=== PATIENT | female | born 1990 | race Caucasian/White ===

== ENCOUNTER 2022-03-31 17:50 | Outpatient (REF) | payer MEDICARE, SELFPAY ==
[2022-03-31 20:18] LABS: *AMPHETAMINES SCREEN URINE Negative (Negative); *BARBITURATES SCREEN URINE Negative (Negative); *BENZODIAZEPINES SCREEN URINE Negative (Negative); Cannabinoids THC Negative (Negative); Cocaine Screen,Urine Negative (Negative); METHADONE URINE SCREEN Negative (Negative); OPIATES URINE SCREEN Negative (Negative)
[2022-03-31 20:29] LABS: Tricyclic Antidepressants Negative (Negative)
[2022-04-10 16:09] LABS: Buprenorphine Negative ng/mL (Cutoff: 5.0); Norbuprenorphine Negative ng/mL (Cutoff: 2.5)
== END 2022-03-31 17:51 | disposition home or self-care (01) ==
LOC: LBN 17:50
PROVIDERS: Visit Provider Advanced Practice Midwife
DX: Z34.93 Encounter for supervision of normal pregnancy, unspecified, third trimester (principal)
CPT/HCPCS: 80307; 87077; 87086; 87186; 87480; 87510; 87660

== ENCOUNTER 2022-04-02 02:47 | Outpatient (CLI) | payer MEDICARE, SELFPAY ==
--- NOTE | 2022-04-02 07:00 | DI.US_ITS ---
Exam(s) US OB KATERIN WEIGHT EXAM: US OB KATERIN WEIGHT CLINICAL HISTORY: drug exposure, growth,P04.9. TECHNIQUE: Transabdominal obstetrical ultrasound performed. COMPARISON: No exams were available for comparison FINDINGS:: Number of fetuses: One. position: Vertex. Placental location: Anterior, grade 2 no evidence of previa. BIOMETRIC DATA: BPD: 86mm = 34+5 weeks HC: 325mm = 36+ 6 weeks AC: 352mm = 39+ 1 weeks FL: 69 mm = 35+4 weeks EFW: 3238 Gms = 92% Composite Age: 36+ 4 weeks EDC: 26 April 2022 Heart Rate: 157BPM Amniotic fluid index: 11.8 cm. Amount of fluid is visually within normal limits. IMPRESSION: size and weight are within the expected range. DATA REPOSITORY:
== END 2022-04-02 03:07 ==
PROVIDERS: Visit Provider Advanced Practice Midwife
DX: O99.321 Drug use complicating pregnancy, first trimester (principal)
CPT/HCPCS: 76816

== ENCOUNTER 2022-04-07 03:19 | Outpatient (CLI) | payer MEDICARE, MEDICAID, SELFPAY ==
[2022-04-07 13:18] LABS: HCT 30.8 % (36.0-46.0); HGB 9.8 g/dL (11.2-15.7); MCH 26.6 pg (27.0-33.0); MCHC 31.8 % (32.0-36.0); MCV 84 fL (80-95); MPV 9.9 fL (8.0-11.0); Platelet Count 380 10^3/uL (130-400); RBC 3.68 10^6/uL (3.93-5.22); RDW-SD 42.1 fL; WBC 11.91 10^3/uL (4.4-10.8)
[2022-04-07 14:08] LABS: Hemoglobin A1C 5.6 % (<5.7)
== END 2022-04-07 03:20 | disposition home or self-care (01) ==
LOC: LBO 03:19
PROVIDERS: Visit Provider Advanced Practice Midwife
DX: Z36.85 Encounter for antenatal screening for Streptococcus B; O99.013 Anemia complicating pregnancy, third trimester; Z3A.36 36 weeks gestation of pregnancy
CPT/HCPCS: 36415; 85027; 86850; 86900; 86901; 83036; 87081

== ENCOUNTER 2023-01-31 08:46 | Emergency (ER) | payer MEDICARE, MEDICAID, SELFPAY ==
[2023-01-31 08:47] VITALS: BP 127/85; PULSE 90; RESP 20; TEMP 36.9; O2SAT 96
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
[2023-01-31 10:53] LABS: Bilirubin Small (Negative); Blood Trace-intact (Negative); Clarity Sl Cloudy (Clear); Glucose Negative (Negative); Ketones 40 mg/dL (Negative); Leukocyte Esterase Trace (Negative); Nitrite Positive (Negative); Specific Gravity >= 1.030 (1.005-1.025)
[2023-01-31 11:01] LABS: Bacteria Many HPF (Negative); C & S Indicated? No/Sq. Contamination; Casts Negative LPF (Negative); Crystals Negative HPF (Negative); Epithelial Cells Many HPF (Negative); Mucus Heavy (Negative)
[2023-01-31 11:02] LABS: *AMPHETAMINES SCREEN URINE Negative (Negative); *BARBITURATES SCREEN URINE Negative (Negative); *BENZODIAZEPINES SCREEN URINE Negative (Negative); Cannabinoids THC Negative (Negative); Cocaine Screen,Urine Negative (Negative); METHADONE URINE SCREEN Negative (Negative); OPIATES URINE SCREEN Negative (Negative)
[2023-01-31 11:04] LABS: Tricyclic Antidepressants Negative (Negative)
[2023-01-31] MEDS: Fosfomycin Tromethamine 3 GM PACKET PO (12:41)
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
== END 2023-01-31 20:11 | disposition home or self-care (01) ==
PROVIDERS: Registered Nurse Emergency; Emergency Provider Nurse Practitioner Family; PCP Advanced Practice Midwife
DX: F20.9 Schizophrenia, unspecified (principal); Z91.89 Other specified personal risk factors, not elsewhere classified
CPT/HCPCS: 80307; 81025; 99283; 81003; 81015; J3490

== ENCOUNTER 2023-06-28 17:34 | Emergency (ER) | payer MEDICARE, MEDICAID, SELFPAY ==
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
--- NOTE | 2023-06-28 20:48 | ED.PROG_ITS ---
Date of service: 06/28/23 Time of Service: 20:59 Medical Decision Making I was asked to see this patient in conjunction with her advanced practitioner. Please see her complete note for details. In brief this is a homeless 33-year-old female with history of schizophrenia brought in by [place] police on a warrant. Patient has reportedly been living outside. There is concerns for her safety. She tells me that she has been eating and drinking well. She perseverates on staying dry. She is refusing to change. She is comfortable and eating some food. She does have decision-making capacity however given that she arrived on an involuntary hold and that the crisis team was involved I have ordered a tele psychiatry consult. 10:21 PM I spoke with Dr. Sally North after he had assessed the patient. He felt that there was no indication for an involuntary hold. I updated my colleague Dee Howe and then she will determine the disposition for this patient. Patient has remained calm in the emergency department thus far. Discharge Plan Discharge Details Chief Complaint: PsychEval Primary Care Provider: Leeann Thompson ED Provider: Dee Howe Home Meds and New Rx's Prescriptions: No Action haloperidol decanoate [Haldol Decanoate] 100 mg/mL solution 150 mg IM Q4W multivitamin Tablet 1 tab PO DAILY ferrous sulfate 325 mg (65 mg iron) tablet,delayed release (DR/EC) 325 mg PO DAILY Qty: 60 3RF clotrimazole [Clotrimazole-7] 1 % cream 1 appful vaginal QHS Qty: 45 0RF nitrofurantoin monohyd/m-cryst [Macrobid] 100 mg capsule 100 mg PO BID Qty: 14 0RF Rx Instructions: must administer with a meal/food
--- NOTE | 2023-06-28 21:46 | PSYCO_ITS ---
Date of service: 06/28/23 Time of Service: 21:50 Summary Note Array Telepsych Name: Razia Dickson : 1990 Date and Time: 06/28/2023 9:40:36 PM Location of the patient: [facility] ED Location of the doctor: [place] Length of consult: 30 mins This evaluation was conducted via video telepsychiatry with the assistance of onsite staff Reason for consult: Concern for safety Requested by: AMMON History of Present Illness: Patient is a 33 y/o female with hx of depression, substance abuse, schizophrenia presented to ED with police on a warrent?. Patient was seen and evaluated she is noted to be concrete and does not cooperate much. She did endorse that she is not suicidal or homicidal. She does not want to disclose much of her prior psych hx but does have hx of inpatient psych hospitalization. Patient denies a/v hallucinations, she is not paranoid or delusional. Patient states that police brought her here because she is homeless and she states there is nothing wrong with being homeless and i prefer to be on the streets than here. She states that she is originally from [facility] and has been misdiagnosed alot and does not want tell me what she is doing in [place] and what she was diagnosed with. Collateral Contacted: No Reason for not contacting the collateral:None available Sleep issues?: No Psychiatric History/Treatment History: Past diagnoses: schizophrenia, depression Hospitalizations: Yes Description: hx of multiple admission Current Treatment:No Suicide Assessment: PSS-3: 1) Over the past 2 weeks have you felt down, depressed or hopeless? No 2) Over the past 2 weeks have you had thoughts of killing yourself? No 3) Have you ever in your life attempted to kill yourself? No Within the past 6 months? [facility] Safety Assessment: Risk Factors Stressors: homeless Attempts/Self-injury: No Impulsivity:No Drug/Alcohol History:Yes Description: hx of cannabis and alcohol abuse Trauma History:Unknown-NA Access to firearms:No HI/Violence/Property destruction:No Legal: No Family Psych History:Unknown-NA Family History of suicide:Unknown-NA Protective Factors: Can handle stress well? No Latter Day? No External: Social supports/ Therapeutic relationships: No Relationship history: single Living situation: homeless Employment: No Education: Responsibility to family/children/work: Unknown-NA Future orientation:Unknown-NA Health History: Medical History: see hpi Medications & Freq: none Allergies: penicillin Mental Status Exam: Appearance and Attire: Normal Psychomotor agitation: No abnormality Attitude and behavior: Guarded Speech: Slow Mood: Euthymic Affect: Constricted Thought process: Coherent Thought content: No abnormality Perception: none Intel: Average Abstract: Appropriate Language: No abnormality Orientation: Oriented x 4 Sense: Normal Knowledge: Appropriate for education and socioeconomic status Memory: Intact Insight: Appropriate Judgement: Appropriate Gait: No abnormality Impression/Risk Assessment: Current Suicide Risk Elevated? No Current Violence Risk Elevated? No Issues with ability to care for self? No Summary: Based on evaluation patient is not manic, she is not psychotic, she denies si/hi intent or plan. Patient does not want to be admitted to inpatient psych. Diagnosis: F43.20 Adjustment disorder, unspecified CPT Codes: 13520 - Psychiatric Diagnostic Evaluation with Medical Services Treatment Plan: General: Level of Care: Refer to outpatient psychiatrist. Psychiatric Clearance: Yes Observation level ? 1:1 needed?: No Pharmacological: none Patient psychotic?No Therapy: Follow up needed while in the hospital?: No Discussed plan with onsite pilot steam yacht: Yes Who Ed Attending Other: Cl Sandhu [place]
== END 2023-06-28 23:07 | disposition home or self-care (01) ==
PROVIDERS: Emergency Provider Nurse Practitioner Acute Care; PCP Advanced Practice Midwife
DX: R46.89 Other symptoms and signs involving appearance and behavior (principal); Z59.00 Homelessness unspecified
CPT/HCPCS: 00123; 80307; 99285; 81003; 99284

== ENCOUNTER 2023-07-23 10:15 | Emergency (ER) | payer SELFPAY | END 2023-07-23 11:25 | disposition left against medical advice (07) | LOC: ER 11:22 | PROVIDERS: PCP Advanced Practice Midwife | DX: Z53.21 Procedure and treatment not carried out due to patient leaving prior to being seen by health care provider (principal) ==

== ENCOUNTER 2023-08-09 18:34 | Emergency (ER) | payer MEDICARE, MEDICAID, SELFPAY ==
[2023-08-09 18:38] VITALS: PULSE 118; RESP 20; TEMP 37.6; O2SAT 100
--- NOTE | 2023-08-09 18:45 | RT.EKG_ITS ---
APPROVED REPORT Exam: Resting ECG Reason for Exam: weakness Patient Location: E HR:86 bpm ECG Measurements Heart Rate 86 AXIS ID 165 P 15 QRSd 108 QRS 53 QT 496 T 74 QTc 595 Conclusion Sinus rhythm...normal P axis, V-rate 60- 99 Ventricular premature complex...V complex w/ short R-R interval Aberrant conduction of SV complex(es)...aberrant shape, ID [id number] Nonspecific T abnrm, anterolateral leads...T <-0.10mV, I aVL V2-V6 Prolonged QT interval...QTc >495mS Normal sinus rhythm at a rate 86. Interventricular conduction delay QRS 108. Prolonged QTc at 595 m s. ID within normal limits. Difficulty to interpret secondary to significant artifact. No obvious acute injury pattern.
--- NOTE | 2023-08-09 19:00 | DI.CT_ITS ---
Exam(s) CT HEAD WO EXAM: CT HEAD WO CLINICAL HISTORY: confusion. TECHNIQUE: Imaging Protocol: Axial computed tomography images with coronal and sagittal reformatted images were created and reviewed COMPARISON: No exams were available for comparison FINDINGS: There are no skull fractures. There is circumferential mucosal thickening in both maxillary sinuses, more prominent on the left side. No associated fluid levels. Sphenoid sinuses are clear. Mild muco casey thickening noted in the frontal sinuses. Mastoid air cells are clear. There is no evidence of intracranial hemorrhage, mass effect, or shift of midline structures. There are no extra-axial fluid collections. The ventricles are not enlarged or shifted and there is no blo od within the ventricular system nor within the basal cisterns. IMPRESSION: No acute intracranial findings on this noninfused CT scan of the brain. Paranasal sinus disease as described above. RADIATION DOSE DELIVERED: 755.15mGy.cm Total DLP DATA REPOSITORY: All CT scans at this facility are submitted to the National Radiology Data Registry (NRDR) Dose Index Registry (DIR) with the [employer] (ACR). RADIATION OPTIMIZATION: All CT scans at this facility use at least one of these dose optimization te chniques: automated exposure control; mA and/or kV adjustment per patient size (includes targeted exa ms where dose is matched to clinical indication); or iterative reconstruction.
[2023-08-09] MEDS: LORazepam 2 MG/ML VIAL IM (19:05)
[2023-08-09] MEDS: Haloperidol 5 MG/ML VIAL IM (19:05)
[2023-08-09 19:16] VITALS: BP 130/81; PULSE 95; RESP 16; TEMP 37.3; O2SAT 100
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
[2023-08-09 20:00] VITALS: PULSE 90; RESP 14
[2023-08-09 20:08] LABS: Abs Immature Grans 0.03 10^3/uL (0.0-0.06); Absolute Basophil Count 0.05 10^3/uL (0.0-0.2); Absolute Lymphocyte Count 2.07 10^3/uL (1.2-3.4); Absolute Monocyte Count 0.41 10^3/uL (0.1-0.8); Absolute Neutrophil Count 5.16 10^3/uL (1.2-6.7); Basophils % 0.6; Eosinophils % 1.3; HGB 11.4 g/dL (11.2-15.7); Immature Grans % 0.4; Lymphocytes % 26.5; MCH 29.2 pg (27.0-33.0); MCHC 32.6 % (32.0-36.0); MCV 90 fL (80-95); MPV 9.1 fL (8.0-11.0); Monocytes % 5.2; Platelet Count 331 10^3/uL (130-400); RBC 3.91 10^6/uL (3.93-5.22); RDW 13.2 % (11.7-14.6); RDW-SD 43.1 fL; WBC 7.82 10^3/uL (4.4-10.8)
[2023-08-09 20:24] LABS: ALT 16 U/L (14-59); AST 11 U/L (15-37); Albumin 3.2 g/dL (3.4-5.0); Alkaline Phosphatase 39 U/L (46-116); Anion Gap 8.9 mmol/L (3-11); BUN 10 mg/dL (7-18); Bilirubin, Total 0.4 mg/dL (0.2-1.0); CO2 26.1 mmol/L (21.0-32.0); CREATININE 0.9 mg/dL (0.55-1.02); Calcium 8.7 mg/dL (8.5-10.1); Chloride 105 mmol/L (98-107); Estimated GFR 87.65 (mL/min/1.73m2); Glucose 80 mg/dL (74-106); Potassium 3.2 mmol/L (3.5-5.1); Sodium 140 mmol/L (136-145); Total Protein 6.2 g/dL (6.4-8.2)
[2023-08-09 20:34] LABS: TSH (W/Ref FT4) 5.69 uIU/mL (0.36-3.74)
--- NOTE | 2023-08-09 20:36 | DI.VRAD_ITS ---
PROCEDURE INFORMATION: Exam: CT Head Without Contrast Exam date and time: 08/09/2023 8:19 PM Age: 33 years old Clinical indication: Altered mental status/memory loss; Confusion or disorientation TECHNIQUE: Imaging protocol: Computed tomography of the head without contrast. Radiation optimization: All CT scans at this facility use at least one of these dose optimization techniques: automated exposure control; mA and/or kV adjustment per patient size (includes targeted exams where dose is matched to clinical indication); or iterative reconstruction. COMPARISON: No relevant prior studies available. FINDINGS: Brain: No evidence for acute transcortical infarct. No mass effect or midline shift. No extra-axial collection. No acute intracranial hemorrhage. Basal cisterns are patent. Cerebral ventricles: No ventriculomegaly. Paranasal sinuses: Mucosal thickening involving the left maxillary sinus. Mastoid air cells: Visualized mastoid air cells are well aerated. Bones/joints: Unremarkable. No acute fracture. Soft tissues: Unremarkable. IMPRESSION: No evidence for acute transcortical infarct, acute intracranial hemorrhage, or mass effect. Dictated and Authenticated by: Srinivas Dale MD. Ordering:FELISA Selby MD
[2023-08-09 20:48] LABS: ETHANOL BLOOD < 3.0 mg/dL (<10)
[2023-08-09 20:56] LABS: FREE T4 0.88 ng/dL (0.76-1.46)
[2023-08-09 21:00] VITALS: PULSE 90; RESP 14
[2023-08-09 22:19] LABS: HCG Qual (Serum) Negative
--- NOTE | 2023-08-09 23:02 | W.EDPROG ---
Date of service: 08/09/23 Time of Service: 23:02 Medical Decision Making This patient was signed out to me. Please see previous notes for H&P and initial eval. In brief, 33yo F with hx of schizophrenia presenting on warrant for emergency examination. Patient reportedly refused to speak with telepsych tonight as she was tired. Refused medical screening labs; was chemically restrained to allow for bloodwork. No behavioral issues since that time. EE warrant reviewed, there were reports of patient walking out into traffic while looking at her feet, as well as lack of adherence to ADLs and urinating/defecating in her clothes. Evaluated by previous clinician. medically cleared, patient not thought to meet EE criteria. Patient then requested to be left alone to sleep; patient sleeping at time of sign out. Plan for [facility] assessment and telepsych in the morning. Of note, does have mild QTc prolongation, will need caution with QTc prolonging meds. Patient will need to be re-evaluated when she is awake with ongoing re-assessment for appropriateness for involuntary hold vs voluntary stay vs discharge. Overnight appeared to be sleeping comfortably. I did not awaken patient for assessment as sleep is highly beneficial for her at this time. Signed out to oncoming physician; plan remains psychiatry and [facility] in the morning. Quality:SDOH Health Related Social Needs: No Data to Display Sign Out Sign Out Data: Sign Out Comment: 33F, schizophrenia, presented on warrant for EE. Refused medical clearance labs, chemically restrained for bloodwork, no behavioral issues since then. After initial medical screening and ED evaluation, not thought to meet EE criteria; however patient requested to be left alone to sleep and did not want to engage further. Overnight patient appeared to be sleeping comfortably. Last updated by Gabbi Goldman MD at 08/10/23 06:46 Discharge Plan Discharge Details Chief Complaint: PsychEval Primary Care Provider: Leeann Thompson ED Provider: Gabbi Goldman Home Meds and New Rx's Prescriptions: No Action haloperidol decanoate [Haldol Decanoate] 100 mg/mL solution 150 mg IM Q4W multivitamin Tablet 1 tab PO DAILY ferrous sulfate 325 mg (65 mg iron) tablet,delayed release (DR/EC) 325 mg PO DAILY Qty: 60 3RF clotrimazole [Clotrimazole-7] 1 % cream 1 appful vaginal QHS Qty: 45 0RF nitrofurantoin monohyd/m-cryst [Macrobid] 100 mg capsule 100 mg PO BID Qty: 14 0RF Rx Instructions: must administer with a meal/food
--- NOTE | 2023-08-10 13:10 | W.EDPROG ---
Date of service: 08/10/23 Time of Service: 13:10 Medical Decision Making Patient was signed out to me for reassessment after she had slept. On reassessment patient denies any homicidal or suicidal ideations. She states that she feels much better and would like to go home. Before she was not interacting well with any of the other mental health advocates. We did have mental health come and reassess her. Cris has assessed the patient and both the patient and Cris feel that she would be appropriate for discharge with a safety plan. Patient agrees with this. Patient consents to plan and discharge. Patient will be discharged home. Discussed red flags which return. I have extensively reviewed the treatment plan and discharge instructions with the patient. I have addressed all patient concerns at this time. The patient was made aware of what symptoms to monitor for that would warrant a return to the emergency department. Discussed the plan with the patient, they demonstrate verbal understanding and agreement with our assessment and plan at this time. The documentation in this chart was dictated using [employer] dictation software. Please excuse any dictation errors. Quality:SDOH Health Related Social Needs: No Data to Display Sign Out Sign Out Data: Sign Out Comment: 33F, schizophrenia, presented on warrant for EE. Refused medical clearance labs, chemically restrained for bloodwork, no behavioral issues since then. After initial medical screening and ED evaluation, not thought to meet EE criteria; however patient requested to be left alone to sleep and did not want to engage further. Overnight patient appeared to be sleeping comfortably. Last updated by Gabbi Goldman MD at 08/10/23 06:46 Discharge Plan Disposition Patient Disposition: Home Condition: Good Discharge Details Chief Complaint: PsychEval Clinical Impression: Depression Primary Care Provider: Leeann Thompson ED Provider: Jonah Salinas Home Meds and New Rx's Prescriptions: No Action haloperidol decanoate [Haldol Decanoate] 100 mg/mL solution 150 mg IM Q4W multivitamin Tablet 1 tab PO DAILY ferrous sulfate 325 mg (65 mg iron) tablet,delayed release (DR/EC) 325 mg PO DAILY Qty: 60 3RF clotrimazole [Clotrimazole-7] 1 % cream 1 appful vaginal QHS Qty: 45 0RF nitrofurantoin monohyd/m-cryst [Macrobid] 100 mg capsule 100 mg PO BID Qty: 14 0RF Rx Instructions: must administer with a meal/food Discharge Instructions Additional Instructions: Please abide by the safety plan that has been given to you by our mental health advocates. Please follow-up closely with your advocates for continued close monitoring. If you notice any worsening of your symptoms, or any new symptoms such as vomiting, diarrhea, fever, chills, shortness of breath, chest pain, numbness, weakness, or fainting , please return immediately to the emergency department for reevaluation. Please follow up with your primary care provider as soon as possible for reassessment and reevaluation. As always, it was a pleasure participating in your medical care today.
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
== END 2023-08-10 13:33 | disposition home or self-care (01) ==
PROVIDERS: Physician Assistant; Emergency Provider Student in an Organized Health Care Education/Training Program; PCP Advanced Practice Midwife
DX: F20.9 Schizophrenia, unspecified (principal); F32.A Depression, unspecified; R94.31 Abnormal electrocardiogram [ECG] [EKG]; Z78.1 Physical restraint status; Z59.00 Homelessness unspecified
CPT/HCPCS: 00123; 36415; 80053; 93005; 96127; 96372; 99284; 70450; 80320; 84439; 84443; 84703; 85025; 93010; J1630; J2060

== ENCOUNTER 2024-02-11 18:12 | Emergency (ER) | payer MEDICARE, MEDICAID, SELFPAY ==
[2024-02-11 18:14] VITALS: BP 142/98; PULSE 120; RESP 20; O2SAT 97
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
--- NOTE | 2024-02-11 19:12 | NUR.NOTE ---
Nursing Note: Assumed care of pt. Report from LINDA Sanon. Introduced self to pt. Pt is talking a lot. Most of her speech is garbled. Asked pt to get blood from her. With the help of the crisis clinicians/quality review specialist the patient ended up asking for someone else to draw her blood.
[2024-02-12] VITALS (16 sets, daily range): BP systolic 76–153; BP diastolic 44–92; PULSE 44–78; RESP 12–16; TEMP 36.4–36.5; O2SAT 95–100
[2024-02-12 01:41] LABS: *AMPHETAMINES SCREEN URINE Negative (Negative); *BARBITURATES SCREEN URINE Negative (Negative); *BENZODIAZEPINES SCREEN URINE Negative (Negative); Cannabinoids THC Negative (Negative); Cocaine Screen,Urine Negative (Negative); METHADONE URINE SCREEN Negative (Negative); OPIATES URINE SCREEN Negative (Negative)
[2024-02-12 01:45] LABS: Tricyclic Antidepressants Negative (Negative)
--- NOTE | 2024-02-12 07:19 | ED.PROG_ITS ---
Date of service: 02/12/24 Time of Service: 07:19 Medical Decision Making Patient had been brought in on a mental health warrant. She has been cooperative here and has voluntarily remain for inpatient psychiatric admission. [facility] needs to be made aware if she wants or tries to leave as she is potentially an involuntary admission. Urine and drug screen are negative. Med rec has not been completed. Patient signed out to [facility] day physician, Dr. Salinas. Sign Out Sign Out Data: Sign Out Comment: Schizophrenia, wandering in traffic, disorganized. Voluntary but meets EE criteria should she change her mind. Needs upreg for medical clearance. Last updated by Gabbi Goldman MD at 02/11/24 23:00 Discharge Plan Discharge Details Chief Complaint: PsychEval Primary Care Provider: Leeann Thompson ED Provider: Ramón Howell [place] Meds and New Rx's Prescriptions: No Action haloperidol decanoate [Haldol Decanoate] 100 mg/mL solution 150 mg IM Q4W multivitamin Tablet 1 tab PO DAILY ferrous sulfate 325 mg (65 mg iron) tablet,delayed release (DR/EC) 325 mg PO DAILY Qty: 60 3RF clotrimazole [Clotrimazole-7] 1 % cream 1 appful vaginal QHS Qty: 45 0RF nitrofurantoin monohyd/m-cryst [Macrobid] 100 mg capsule 100 mg PO BID Qty: 14 0RF Rx Instructions: must administer with a meal/food
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
[2024-02-12] MEDS: OLANZapine 10 MG TAB PO (11:35)
--- NOTE | 2024-02-12 13:15 | DI.CT_ITS ---
Exam(s) CT HEAD CERV SPINE FACIAL WO EXAM: CT HEAD CERV SPINE FACIAL WO CLINICAL HISTORY: fell, hit face/head. TECHNIQUE: Imaging Protocol: Axial computed tomography images with coronal and sagittal reformatted images were created and reviewed COMPARISON: CT CT HEAD WO from 08/09/2023 FINDINGS: CT Head: Ventricles and Extra axial spaces: Normal in size and morphology for the patient's age. Hemorrhage: None. Cerebral parenchyma: No evidence of acute hemorrhage or acute infarct. Midline shift: None. Brainstem/Cerebellum: Normal. Calvarium: Normal. Visualized Paranasal sinuses/Mastoids: Minimal mucosal thickening at the floor of the left maxillary sinus. Soft Tissues: Unremarkable. CT Face: Facial Bones: Mildly displaced nasal fractures. Sinuses and Mastoids: Unremarkable. Globes, extraocular muscles, optic nerves and retrobulbar fat: Normal. Upper aerodigestive tract: Normal. Mandible and bilateral temporomandibular joints: Normal. Dental caries. Soft tissues: Soft tissue swelling and soft tissue air in the nose. CT Cervical Spine: Exam is limited by rotation the patient's head toward the right. Bones: No acute fracture or subluxation. Soft Tissues: Unremarkable. Lung Apices: Clear. IMPRESSION: 1. No acute intracranial process. 2. No acute fracture or subluxation in the cervical spine. 3. Nasal fractures. RADIATION DOSE DELIVERED: Total DLP DATA REPOSITORY: All CT scans at this facility are submitted to the National Radiology Data Registry (NRDR) Dose Index Registry (DIR) with the [employer] (ACR). RADIATION OPTIMIZATION: All CT scans at this facility use at least one of these dose optimization te chniques: automated exposure control; mA and/or kV adjustment per patient size (includes targeted exa ms where dose is matched to clinical indication); or iterative reconstruction.
--- NOTE | 2024-02-12 13:15 | RT.EKG_ITS ---
APPROVED REPORT Exam: Resting ECG Reason for Exam: syncope Patient Location: E HR:47 bpm ECG Measurements Heart Rate 47 AXIS NM 141 P 27 QRSd 113 QRS 73 QT 457 T 59 QTc 405 Conclusion Sinus bradycardia...rate< 60 Incomplete right bundle branch block...QRSd >112, terminal axis(90,270) ST elev, probable normal early repol pattern...ST elevation, age<55 Physician: no stemi
[2024-02-12] MEDS: Lactated Ringers 1,000 ML 1000 ML IV (13:39)
[2024-02-12 13:45] LABS: BE (Venous) 1 mmol/L (-2-3); HCO3 (Venous) 26 mmol/L (23-28); O2 Sat (Venous) 76 %; TCO2 (Venous) 24 mmol/L (24-29); pCO2 (Venous) 46 mmHg (41-51); pH (Venous) 7.36 (7.31-7.41); pO2 (Venous) 43 mmHg
[2024-02-12 13:48] LABS: Abs Immature Grans 0.02 10^3/uL (0.0-0.06); Absolute Basophil Count 0.09 10^3/uL (0.0-0.2); Absolute Eosinophil Count 0.32 10^3/uL (0.0-0.7); Absolute Lymphocyte Count 2.21 10^3/uL (1.2-3.4); Absolute Monocyte Count 0.33 10^3/uL (0.1-0.8); Absolute Neutrophil Count 3.35 10^3/uL (1.2-6.7); Basophils % 1.4 %; Eosinophils % 5.1 %; HCT 39.7 % (36.0-46.0); HGB 13.1 g/dL (11.2-15.7); Immature Grans % 0.3 %; MCH 30.8 pg (27.0-33.0); MCV 93 fL (80-95); MPV 9.6 fL (8.0-11.0); Monocytes % 5.2 %; Platelet Count 283 10^3/uL (130-400); RBC 4.25 10^6/uL (3.93-5.22); RDW 12.6 % (11.7-14.6); RDW-SD 43.7 fL; WBC 6.32 10^3/uL (4.4-10.8)
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
[2024-02-12 14:10] LABS: INR 1.2 (0.9-1.1); PTT Activated 20.3 sec (23.6-32.8); Prothrombin Time 11.5 sec (9.1-11.1)
[2024-02-12 14:16] LABS: ALT 20 U/L (14-59); AST 13 U/L (15-37); Alkaline Phosphatase 50 U/L (46-116); Anion Gap 8.6 mmol/L (3-11); BUN 9 mg/dL (7-18); Bilirubin, Total 0.82 mg/dL (0.2-1.0); CO2 28.4 mmol/L (21.0-32.0); CREATININE 0.9 mg/dL (0.55-1.02); Calcium 8.8 mg/dL (8.5-10.1); Chloride 105 mmol/L (98-107); Estimated GFR 87.65 (mL/min/1.73m2); Glucose 106 mg/dL (74-106); Potassium 4.2 mmol/L (3.5-5.1); Sodium 142 mmol/L (136-145); TSH (W/Ref FT4) 4.48 uIU/mL (0.36-3.74); Troponin I < 50 ng/L (< or =60)
[2024-02-12 14:32] LABS: FREE T4 1.14 ng/dL (0.76-1.46)
--- NOTE | 2024-02-12 15:03 | W.EDPROG ---
Date of service: 02/12/24 Time of Service: 15:03 Medical Decision Making Case was signed out to me pending placement. She is still here voluntarily. Recommendations were to perform EE if she tries to leave. Patient was given scheduled Zyprexa, and did fine with this. She was confrontational with nursing staff during the initial administration but she eventually excepted and took it voluntarily. Few hours later patient did come out and had another fit of anger, and then she kneeled on the floor, and then fell face first into the ground during this fit. She was slightly altered after this happened. I suspect she developed a concussion. Repeat assessment demonstrated normal blood sugar, she was slightly hypotensive for a very short period of time. She was brought back to the other side of the emergency department and reevaluated in room 9. Labs were drawn, a liter of lactated Ringer's was given, labs have all returned normal with no significant abnormality. TSH is slightly high but free T4 is normal. CT scan does show evidence of a mild nasal fracture from the fall, however she remained stable otherwise. No acute process intracranially. EKG is benign, no signs of significant abnormality. I doubt initial syncope caused her fall forward I suspect it was more malicious, however I do suspect that she developed a mild concussion afterwards. Currently she is ANO x 4, continues to have pressured speech, flight of ideas, demonstrates the initial findings that she had when she first arrived. Patient remains hemodynamically stable, her nose was washed and the area was bandaged. She will be placed back in zone B she is medically cleared/stable at this time. Quality:[facility] Health Related Social Needs: No Data to Display Sign Out Sign Out Data: Sign Out Comment: Schizophrenia, wandering in traffic, disorganized. Voluntary but meets EE criteria should she change her mind. Needs upreg for medical clearance. Last updated by Gbabi Goldman MD at 02/11/24 23:00 Sign Out Comment: Patient pending inpatient admission and is voluntary. Has been cooperative. Will need EE if wants or attempts to leave. Last updated by Ramón Howell MD at 02/12/24 07:38 Discharge Plan Discharge Details Chief Complaint: PsychEval Clinical Impression: Psychosis, Fracture, nasal Primary Care Provider: Leeann Thompson ED Provider: Jonah Salinas Home Meds and New Rx's Prescriptions: No Action haloperidol decanoate [Haldol Decanoate] 100 mg/mL solution 150 mg IM Q4W multivitamin Tablet 1 tab PO DAILY ferrous sulfate 325 mg (65 mg iron) tablet,delayed release (DR/EC) 325 mg PO DAILY Qty: 60 3RF clotrimazole [Clotrimazole-7] 1 % cream 1 appful vaginal QHS Qty: 45 0RF nitrofurantoin monohyd/m-cryst [Macrobid] 100 mg capsule 100 mg PO BID Qty: 14 0RF Rx Instructions: must administer with a meal/food
--- NOTE | 2024-02-12 15:04 | DI.VRAD_ITS ---
PROCEDURE INFORMATION: Exam: CT Head Without Contrast Exam date and time: 02/12/2024 1:58 PM Age: 33 years old Clinical indication: Other: Fall, trauma TECHNIQUE: Imaging protocol: Computed tomography of the head without contrast. Radiation optimization: All CT scans at this facility use at least one of these dose optimization techniques: automated exposure control; mA and/or kV adjustment per patient size (includes targeted exams where dose is matched to clinical indication); or iterative reconstruction. COMPARISON: CT HEAD WO 08/09/2023 8:19 PM FINDINGS: Brain: Normal. No hemorrhage. Unremarkable white matter. No mass effect. Cerebral ventricles: No ventriculomegaly. Paranasal sinuses: Mild mucosal disease of the left maxillary sinus. Mastoid air cells: Visualized mastoid air cells are well aerated. Bones: Unremarkable. No acute fracture. Soft tissues: Unremarkable. IMPRESSION: No intracranial posttraumatic changes. PROCEDURE INFORMATION: Exam: CT Maxillofacial Without Contrast Exam date and time: 02/12/2024 1:58 PM Age: 33 years old Clinical indication: Other: Fall, trauma TECHNIQUE: Imaging protocol: Computed tomography of the face without contrast. Radiation optimization: All CT scans at this facility use at least one of these dose optimization techniques: automated exposure control; mA and/or kV adjustment per patient size (includes targeted exams where dose is matched to clinical indication); or iterative reconstruction. COMPARISON: CT HEAD WO 08/09/2023 8:19 PM FINDINGS: Orbital cavities: Orbits are normal. Globes are unremarkable. Paranasal sinuses: Mucosal disease of the left maxillary sinus. Nasal cavity: No nasal septal hematoma. Teeth: Dental caries of multiple maxillary teeth. Bones: There is a depressed fracture of the left nasal bone and nondisplaced fracture of the right nasal bone. Soft tissues: Soft swelling of the nose with subcutaneous emphysema. IMPRESSION: Depressed fracture of the left nasal bone and nondisplaced fracture of the right nasal bone with overlying soft swelling and emphysema. PROCEDURE INFORMATION: Exam: CT Cervical Spine Without Contrast Exam date and time: 02/12/2024 1:58 PM Age: 33 years old Clinical indication: Other: Fall, trauma TECHNIQUE: Imaging protocol: Computed tomography of the cervical spine without contrast. Radiation optimization: All CT scans at this facility use at least one of these dose optimization techniques: automated exposure control; mA and/or kV adjustment per patient size (includes targeted exams where dose is matched to clinical indication); or iterative reconstruction. COMPARISON: CT HEAD WO 08/09/2023 8:19 PM FINDINGS: Bones: There is 20 degrees rotation at the C1-C2 articulation, likely positional. Mild curvature of the cervical spine convex to the left. Few pockets of air around the medial aspect of the left lateral mass and left vertebral canal at C1 level, unclear etiology. No acute fracture or dislocation. Lungs: Lung apices are normal. Soft tissues: Unremarkable. IMPRESSION: No acute fracture or dislocation in the cervical spine. Dictated and Authenticated by: Jason Spear MD. Ordering:NEFTALY Mckenzie MD
--- NOTE | 2024-02-12 16:06 | W.EDPROG ---
Date of service: 02/12/24 Time of Service: 16:06 Medical Decision Making This patient was signed out to me. Please see previous notes for H&P and initial eval. In brief, 33yo F presenting voluntary with disorganized schizophrenia. Medically cleared, pending placement. During the day today threw herself on the floor and broke her nose. Meets EE criteria should she wish to leave. No acute behavioral events this shift. Will be signed out to oncoming physician, plan remains as above. Quality:[facility] Health Related Social Needs: No Data to Display Sign Out Sign Out Data: Sign Out Comment: Schizophrenia, wandering in traffic, disorganized. Voluntary but meets EE criteria should she change her mind. Needs upreg for medical clearance. Last updated by Gabbi Goldman MD at 02/11/24 23:00 Sign Out Comment: Patient pending inpatient admission and is voluntary. Has been cooperative. Will need EE if wants or attempts to leave. Last updated by Ramón Howell MD at 02/12/24 07:38 Sign Out Comment: Schizophrenia, pressured speech, was cooperative last night, but then today had multiple temper tantrums, did throw her face onto the floor and broke her nose, she had CT scan laboratory workup and a liter of lactated Ringer's. She was medically cleared and is acting back at baseline. Pending placement. Last updated by Jonah Salinas DO at 02/12/24 15:19 Discharge Plan Discharge Details Chief Complaint: PsychEval Clinical Impression: Psychosis, Fracture, nasal Primary Care Provider: Leeann Thompson ED Provider: Gabbi Goldman Home Meds and New Rx's Prescriptions: No Action haloperidol decanoate [Haldol Decanoate] 100 mg/mL solution 150 mg IM Q4W multivitamin Tablet 1 tab PO DAILY ferrous sulfate 325 mg (65 mg iron) tablet,delayed release (DR/EC) 325 mg PO DAILY Qty: 60 3RF clotrimazole [Clotrimazole-7] 1 % cream 1 appful vaginal QHS Qty: 45 0RF nitrofurantoin monohyd/m-cryst [Macrobid] 100 mg capsule 100 mg PO BID Qty: 14 0RF Rx Instructions: must administer with a meal/food
--- NOTE | 2024-02-12 19:19 | NUR.NOTE ---
[facility] called to decline pt.
--- NOTE | 2024-02-12 19:22 | NUR.NOTE ---
No assessment for pt due to Code Marsh pt is now sleeping.
--- NOTE | 2024-02-13 05:51 | W.EDPROG ---
Date of service: 02/13/24 Time of Service: 06:36 Medical Decision Making Patient remains in the ED pending inpatient psychiatric admission. She continues to be voluntary and was cooperative overnight with no issues after the events of yesterday. Still unable to reconcile medications. Sign Out Sign Out Data: Sign Out Comment: Schizophrenia, wandering in traffic, disorganized. Voluntary but meets EE criteria should she change her mind. Needs upreg for medical clearance. Last updated by Gabbi Goldman MD at 02/11/24 23:00 Sign Out Comment: Patient pending inpatient admission and is voluntary. Has been cooperative. Will need EE if wants or attempts to leave. Last updated by Ramón Howell MD at 02/12/24 07:38 Sign Out Comment: Schizophrenia, pressured speech, was cooperative last night, but then today had multiple temper tantrums, did throw her face onto the floor and broke her nose, she had CT scan laboratory workup and a liter of lactated Ringer's. She was medically cleared and is acting back at baseline. Pending placement. Last updated by Jonah Salinas DO at 02/12/24 15:19 Sign Out Comment: Decompensated schizophrenia. [facility] inpatient. Today threw herself on the floor and broke her nose. Medically cleared, Voluntary at this time but would meet EE criteria should she wish to leave. Last updated by Gabbi Goldman MD at 02/12/24 23:27 Discharge Plan Discharge Details Chief Complaint: PsychEval Clinical Impression: Psychosis, Fracture, nasal Primary Care Provider: Leeann Thompson ED Provider: Ramón Howell Home Meds and New Rx's Prescriptions: No Action haloperidol decanoate [Haldol Decanoate] 100 mg/mL solution 150 mg IM Q4W multivitamin Tablet 1 tab PO DAILY ferrous sulfate 325 mg (65 mg iron) tablet,delayed release (DR/EC) 325 mg PO DAILY Qty: 60 3RF clotrimazole [Clotrimazole-7] 1 % cream 1 appful vaginal QHS Qty: 45 0RF nitrofurantoin monohyd/m-cryst [Macrobid] 100 mg capsule 100 mg PO BID Qty: 14 0RF Rx Instructions: must administer with a meal/food
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
[2024-02-13 08:07] VITALS: BP 116/77; PULSE 75; RESP 18; TEMP 36.7; O2SAT 100
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
[2024-02-13] MEDS: OLANZapine 10 MG TAB PO (09:23)
[2024-02-13 09:47] VITALS: BP 122/84; PULSE 81; O2SAT 100
[2024-02-13] MEDS: LORazepam 1 MG TAB PO (15:25)
--- NOTE | 2024-02-14 06:50 | W.EDPROG ---
Date of service: 02/14/24 Time of Service: 06:50 Medical Decision Making No issues overnight. Patient remains voluntary for inpatient psychiatric admission. Sign Out Sign Out Data: Sign Out Comment: Schizophrenia, wandering in traffic, disorganized. Voluntary but meets EE criteria should she change her mind. Needs upreg for medical clearance. Last updated by Gabbi Goldman MD at 02/11/24 23:00 Sign Out Comment: Patient pending inpatient admission and is voluntary. Has been cooperative. Will need EE if wants or attempts to leave. Last updated by Ramón Howell MD at 02/12/24 07:38 Sign Out Comment: Schizophrenia, pressured speech, was cooperative last night, but then today had multiple temper tantrums, did throw her face onto the floor and broke her nose, she had CT scan laboratory workup and a liter of lactated Ringer's. She was medically cleared and is acting back at baseline. Pending placement. Last updated by Jonah Salinas DO at 02/12/24 15:19 Sign Out Comment: Decompensated schizophrenia. [facility] rec inpatient. Today threw herself on the floor and broke her nose. Medically cleared, Voluntary at this time but would meet EE criteria should she wish to leave. Last updated by Gabbi Goldman MD at 02/12/24 23:27 Sign Out Comment: No issues on the overnight shift. Pending inpatient psych admission. Last updated by Ramón Howell MD at 02/13/24 07:21 Sign Out Comment: pending voluntary inpatient placement decompensated schizophrenia [facility] recommends EE if she wants to leave, draft has been written. Last updated by Bhavna De La Torre MD at 02/13/24 15:52 Sign Out Comment: voluntary for decompensated schizophrenia, running in traffic Last updated by Laz Baker MD at 02/13/24 23:32 Discharge Plan Discharge Details Chief Complaint: PsychEval Clinical Impression: Psychosis, Fracture, nasal Primary Care Provider: Leeann Thompson ED Provider: Ramón Howell Home Meds and New Rx's Prescriptions: No Action haloperidol decanoate [Haldol Decanoate] 100 mg/mL solution 150 mg IM Q4W multivitamin Tablet 1 tab PO DAILY ferrous sulfate 325 mg (65 mg iron) tablet,delayed release (DR/EC) 325 mg PO DAILY Qty: 60 3RF clotrimazole [Clotrimazole-7] 1 % cream 1 appful vaginal QHS Qty: 45 0RF nitrofurantoin monohyd/m-cryst [Macrobid] 100 mg capsule 100 mg PO BID Qty: 14 0RF Rx Instructions: must administer with a meal/food
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
[2024-02-14] MEDS: OLANZapine 10 MG TAB PO (09:30)
--- NOTE | 2024-02-16 16:25 | PDOC.MHPN2 ---
Date of service: 02/13/24 Time of Service: 16:26 Mental Health Emergency Note Release [facility] release signed:: Yes Reason for Visit Daily assessment. The client was engaged in the assessment as she was responding back however, she was not making a lot of sense. Any previous attempts are not known by this clinician. She has only been followed by ES as she has been too disorganized to follow up with other services. In the last 2 weeks has the pt presented for ES prior to today?: Unknown Impression She has been hospitalized before at in high school. No screening tools are not able to be completed due to her level of disorganized thoughts and speech. The client presented lying in bed and forde her entire body covered with a blanket. She was responsive to questions however, her answers did not make sense. This clinician could only orange picker machine operator some words that were repeated by this clinician's questions. Nursing reported that the client remains mostly in her room but is able to communicate what it is she is looking for for food or drink. She was observed writing in a journal. She was heard asking to use the bathroom. Nursing reported that she is sleeping and eating well. Plan/Disposition Recommended Disposition: Hospitalization facilities contacted. Plan: The client will remain at [facility] until placed and be reassessed daily. Person reported agreement to plan: Yes Reports/communication Outcome discussed with: ED/Personnel
== END 2024-02-14 11:39 ==
PROVIDERS: Student in an Organized Health Care Education/Training Program; Emergency Provider Emergency Medicine; PCP Advanced Practice Midwife
DX: F20.89 Other schizophrenia (principal); S02.2XXA Fracture of nasal bones, initial encounter for closed fracture; Z59.00 Homelessness unspecified; W18.39XA Other fall on same level, initial encounter; Y93.89 Activity, other specified; Y92.232 Corridor of hospital as the place of occurrence of the external cause
CPT/HCPCS: 123; 80053; 80307; 81025; 82805; 82962; 93005; 96360; 99285; 00123; 70450; 70486; 72125; 84439; 84443; 84484; 85025; 85610; 85730; 93010

== ENCOUNTER 2024-05-14 19:59 | Emergency (ER) | payer MEDICARE, MEDICAID, SELFPAY ==
[2024-05-14 20:03] VITALS: BP 136/105; PULSE 86; RESP 16; TEMP 36.6; O2SAT 98
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
[2024-05-14] MEDS: QUEtiapine 100 MG TAB PO (20:28)
--- NOTE | 2024-05-14 23:26 | W.EDPROG ---
Date of service: 05/14/24 Time of Service: 23:27 Medical Decision Making This patient was signed out to me. Please see previous notes for H&P and initial eval. In brief, 34yo F presenting with decompensated schizophrenia in the setting of medication non-adherence. EEd, pending 2nd cert. Overnight no acute events, appeared to be sleeping. Did not wake for assessment. Ordered prn ativan and scheduled PO haldol (should patient be willing to take). Awaiting urine for upreg/UDS. Will be signed out to oncoming physician, plan remains as above. Quality:[facility] Health Related Social Needs: No Data to Display Sign Out Sign Out Data: Sign Out Comment: EE filed, needs second cert medically cleared history of schizophrenia, refusing medication, decompensated and disorganized. Came in on warrant with [facility] and [facility] Last updated by Bhavna De La Torre MD at 05/14/24 20:38 Discharge Plan Discharge Details Chief Complaint: PsychEval Clinical Impression: Schizophrenia, chronic condition, Psychosis, Non-compliance Primary Care Provider: Leeann Thompson ED Provider: Gabbi Goldman Home Meds and New Rx's Prescriptions: No Action haloperidol decanoate [Haldol Decanoate] 100 mg/mL solution 150 mg IM Q4W multivitamin Tablet 1 tab PO DAILY ferrous sulfate 325 mg (65 mg iron) tablet,delayed release (DR/EC) 325 mg PO DAILY Qty: 60 3RF clotrimazole [Clotrimazole-7] 1 % cream 1 appful vaginal QHS Qty: 45 0RF nitrofurantoin monohyd/m-cryst [Macrobid] 100 mg capsule 100 mg PO BID Qty: 14 0RF Rx Instructions: must administer with a meal/food
[2024-05-15] MEDS: QUEtiapine 100 MG TAB PO (03:19)
[2024-05-15] MEDS: LORazepam 1 MG TAB PO (03:19)
[2024-05-15] MEDS: Haloperidol 1 MG TAB 2 MG PO ×3 (10:13→20:11)
[2024-05-15 10:14] VITALS: BP 102/57; PULSE 105; RESP 16; TEMP 36.6; O2SAT 97
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
[2024-05-15 11:27] LABS: *AMPHETAMINES SCREEN URINE Negative (Negative); *BARBITURATES SCREEN URINE Negative (Negative); *BENZODIAZEPINES SCREEN URINE Negative (Negative); Cannabinoids THC Negative (Negative); Cocaine Screen,Urine Negative (Negative); METHADONE URINE SCREEN Negative (Negative); OPIATES URINE SCREEN Negative (Negative); Tricyclic Antidepressants Negative (Negative)
--- NOTE | 2024-05-15 11:31 | PDOC.CMSAFE ---
Date of service: 05/15/24 Time of Service: 11:31 Care Management Safety Plan Status Status: Involuntary Reason for Wait Reason for Wait: Assessment/Screening (second cert scheduled for today) Safety Plan Safety Plan: INVOLUNTARY FOR INPATIENT PSYCHIATRIC STABILIZATION.? Patient is appropriate in all interactions since arriving at [facility]; Pt has demonstrated appropriate coping and communication skills, has articulated his or her needs and concerns and is fully engaged during staff interactions. Razia is here involuntarily; second certification will happen today, likely after 5pm. She will transition to zone B once staffing is available to accommodate her needs. Per RN, she is taking medications; she appears manic and is tangential in speech. Per [facility], she has been staying with her parents, who are willing to take her home after hospitalization, if she is stable on medications. Safety plan has been established with patient, and care team, to adhere to patient goals, identify restrictions based on behavioral status, address nutrition, and determine allowed personal belongings, tools for hygiene and personal care. Determine level of activity including ambulation, level of supervision, visitors, and determine privileges based on behaviors and level of engagement by pt. SAFETY PLAN: 1. Will remain on suicide precautions, in paper clothes 2. Will remain in Zone B under direct supervision of one-on-one staff at all times provided by [employer]; ZARINA, SENIOR WATER/WASTEWATER ENGINEER director music. 3. May have paper cups, plates, finger foods as well as a cardboard spoon with which to eat meals. 4. Follow [facility] Management of the Admitted Behavioral Health Patient policy. 5. Shower available in Zone B without restriction. 6. Personal belongings-soft items permitted at RN discretion. 7. Visitors- at RN discretion; parents are supportive. 8. Activities: soft cart items approved per RN discretion. 9.? Bathroom available in Zone B without restriction. 10. Phone: limited to [facility] cordless phone at RN discretion. Due to INVOLUNTARY status, patient is being held at [facility] by the Department of Mental Health ([facility]) until 2nd certification by [facility] Psychiatrist can be performed (within 24 hours). Staff will provide de-escalation support (CPI) as needed. If patient wishes to leave [facility], staff will contact [facility] Crisis Screener ([phone]) and [employer] ([phone]) as soon as possible. In the event of elopement, notify [facility] Police ([phone]). Patient is currently involuntarily at [facility]. [facility] Frontline Brine Process Operator will continue seeking placement. Please contact the [employer] for any needed changes to Safety Plan. Safety plan has been provided to interdepartmental care team. Patient will be transported by high school special education teacher at time of discharge.
--- NOTE | 2024-05-15 14:21 | W.EDPROG ---
Date of service: 05/15/24 Time of Service: 14:21 Medical Decision Making Patient was signed out to me pending second certification. We were contacted by [facility], and the patient has been accepted there. I discussed the case with Sandra White nurse practitioner and she accepts the patient for transfer. They are simply waiting on the second certification at this stage. Patient will will be signed out to my colleague Dr. Roberts for completion of this transfer once the second certification is done. Paperwork has not yet been filled out until second certification complete. Quality:SDOH Health Related Social Needs: No Data to Display Sign Out Sign Out Data: Sign Out Comment: EE filed, needs second cert medically cleared history of schizophrenia, refusing medication, decompensated and disorganized. Came in on warrant with [facility] and [facility] Last updated by Bhavna De La Torre MD at 05/14/24 20:38 Sign Out Comment: Decompensated schizophrenia, EEd, awaiting 2nd cert. Needs urine. Last updated by Gabbi Goldman MD at 05/15/24 07:40 Discharge Plan Discharge Details Chief Complaint: PsychEval Clinical Impression: Schizophrenia, chronic condition, Psychosis, Non-compliance Primary Care Provider: Leeann Thompson ED Provider: Jonah Salinas Home Meds and New Rx's Prescriptions: No Action haloperidol decanoate [Haldol Decanoate] 100 mg/mL solution 150 mg IM Q4W multivitamin Tablet 1 tab PO DAILY ferrous sulfate 325 mg (65 mg iron) tablet,delayed release (DR/EC) 325 mg PO DAILY Qty: 60 3RF clotrimazole [Clotrimazole-7] 1 % cream 1 appful vaginal QHS Qty: 45 0RF nitrofurantoin monohyd/m-cryst [Macrobid] 100 mg capsule 100 mg PO BID Qty: 14 0RF Rx Instructions: must administer with a meal/food
--- NOTE | 2024-05-15 16:05 | W.EDPROG ---
Date of service: 05/15/24 Time of Service: 16:09 Medical Decision Making Patient on involuntary status for decompensated schizophrenia, no reported issues on prior shift and no new acute complaints. Will continue to monitor until safe disposition found. Quality:SDOH Health Related Social Needs: No Data to Display Sign Out Sign Out Data: Sign Out Comment: EE filed, needs second cert medically cleared history of schizophrenia, refusing medication, decompensated and disorganized. Came in on warrant with [facility] and [facility] Last updated by Bhavna De La Torre MD at 05/14/24 20:38 Sign Out Comment: Decompensated schizophrenia, EEd, awaiting 2nd cert. Needs urine. Last updated by Gabbi Goldman MD at 05/15/24 07:40 Sign Out Comment: Schizophrenia, stable here in the ED throughout my shift. No interventions needed. Second certification has been completed. [facility] excepted, however mental health requests [facility] transfer instead. [facility] is also now accepted but will not be able to transport till [address] Banks transfer. Last updated by Jonah Salinas DO at 05/15/24 15:35 Discharge Plan Discharge Details Chief Complaint: PsychEval Clinical Impression: Schizophrenia, chronic condition, Psychosis, Non-compliance Primary Care Provider: Leeann Thompson ED Provider: Roman Roberts Home Meds and New Rx's Prescriptions: No Action haloperidol decanoate [Haldol Decanoate] 100 mg/mL solution 150 mg IM Q4W multivitamin Tablet 1 tab PO DAILY ferrous sulfate 325 mg (65 mg iron) tablet,delayed release (DR/EC) 325 mg PO DAILY Qty: 60 3RF clotrimazole [Clotrimazole-7] 1 % cream 1 appful vaginal QHS Qty: 45 0RF nitrofurantoin monohyd/m-cryst [Macrobid] 100 mg capsule 100 mg PO BID Qty: 14 0RF Rx Instructions: must administer with a meal/food
[2024-05-15 20:18] VITALS: BP 114/72; PULSE 78; RESP 18; TEMP 36.6; O2SAT 99
--- NOTE | 2024-05-15 22:04 | W.EDPROG ---
Date of service: 05/15/24 Time of Service: 22:05 Medical Decision Making This patient was signed out to me. Please see previous notes for H&P and initial eval. In brief, 34yo F with decompensated schizophrenia, EEd and 2nd cert completed. Pending placement (likely [facility]). Overnight no acute events. Did not wake patient for assessment. Will be signed out to oncoming physician; plan remains as above. Quality:SDOH Health Related Social Needs: No Data to Display Sign Out Sign Out Data: Sign Out Comment: EE filed, needs second cert medically cleared history of schizophrenia, refusing medication, decompensated and disorganized. Came in on warrant with [facility] and [facility] Last updated by Bhavna De La Torre MD at 05/14/24 20:38 Sign Out Comment: Decompensated schizophrenia, EEd, awaiting 2nd cert. Needs urine. Last updated by Gabbi Goldman MD at 05/15/24 07:40 Sign Out Comment: Schizophrenia, stable here in the ED throughout my shift. No interventions needed. Second certification has been completed. [facility] except[facility], however mental health requests [facility] instead. [facility] is also now accepted but will not be able to transport till [address]. Banks transfer. Last updated by Jonah Salinas DO at 05/15/24 15:35 Sign Out Comment: decompensated schizophrenia, EE, no issues during shift. Last updated by Roman Roberts MD at 05/15/24 21:03 Discharge Plan Discharge Details Chief Complaint: PsychEval Clinical Impression: Schizophrenia, chronic condition, Psychosis, Non-compliance Primary Care Provider: Leeann Thompson ED Provider: Gabbi Goldman Home Meds and New Rx's Prescriptions: No Action haloperidol decanoate [Haldol Decanoate] 100 mg/mL solution 150 mg IM Q4W multivitamin Tablet 1 tab PO DAILY ferrous sulfate 325 mg (65 mg iron) tablet,delayed release (DR/EC) 325 mg PO DAILY Qty: 60 3RF clotrimazole [Clotrimazole-7] 1 % cream 1 appful vaginal QHS Qty: 45 0RF nitrofurantoin monohyd/m-cryst [Macrobid] 100 mg capsule 100 mg PO BID Qty: 14 0RF Rx Instructions: must administer with a meal/food
[2024-05-16] MEDS: Haloperidol 1 MG TAB 2 MG PO (07:53)
== END 2024-05-16 09:07 ==
PROVIDERS: Emergency Medicine; Emergency Provider Student in an Organized Health Care Education/Training Program; PCP Advanced Practice Midwife
DX: F20.9 Schizophrenia, unspecified (principal); F29 Unspecified psychosis not due to a substance or known physiological condition; Z91.148 Patient's other noncompliance with medication regimen for other reason; Z59.00 Homelessness unspecified
CPT/HCPCS: 00123; 80307; 81025; 99285